=== PATIENT | female | born 1995 | race Caucasian/White ===

== ENCOUNTER 2017-06-25 19:13 | Emergency (ER) | payer OTHER ==
[~2017-06-25] VITALS: Ht 165.1 cm; Wt 53.8 kg
[~2017-06-25 19:13] MED LIST: ALBU8I INH; [UNRECOGNIZED DRUG - OTHER]
[2017-06-25 19:23] VITALS: BP 135/85; PULSE 82; RESP 18; TEMP 97.8; O2SAT 97
--- NOTE | 2017-06-25 20:17 | RADRPT ---
EXAM DATE/TIME: 06/25/2017 19:58 [place] COMPARISON: No previous studies available for comparison. INDICATIONS : Left elbow injury last night at concert. MEDICAL HISTORY : None. SURGICAL HISTORY : None. ENCOUNTER: Initial ACUITY: 1 day PAIN SCORE: 7/10 LOCATION: Left elbow FINDINGS: Multiple view examination of the left elbow demonstrates no soft tissue swelling, joint effusion, or fracture. The osseous structures are in normal alignment. Bony mineralization is normal. CONCLUSION: No acute disease. Tone Sanchez MD on June 25, 2017 at 20:15 Board Certified Radiologist. This report was verified electronically.
--- NOTE | 2017-06-25 20:22 | PD ---
HPI Chief Complaint: Musculoskeletal Complaint Time Seen by Provider: 19:35 Travel History International Travel<30 days: No Contact w/Intl Traveler<30days: No Traveled to known affect area: No History of Present Illness HPI This is a 22-year-old female here with left elbow pain 1 day. She injured the elbow on a metal pole. She now has pain with flexion and extension of the elbow. Pain is described as achy worse with movement and relieved with rest. Denies altered sensation in the extremity. Pain localized to the lateral epicondyle. Symptom severity is moderate. PFSH Past Medical History Medical History: Denies Significant Hx Asthma: No Autoimmune Disease: No Anxiety: No Depression: No Cardiovascular Problems: No Diminished Hearing: No Genitourinary: No Neurologic: No Psychiatric: No Immunizations Current: Yes Tetanus Vaccination: < 5 Years Influenza Vaccination: Yes ?: Not LMP: 06/11/17 Past Surgical History Surgical History: No Previous Surgery Other Surgery: No Social History Alcohol Use: Yes (occ) Tobacco Use: No Substance Use: No Allergies-Medications (Allergen,Severity, Reaction): Uncoded Allergies: bactrium (Allergy, Unknown, hallucinations, 06/25/17) Reported Meds & Prescriptions Reported Meds & Active Scripts Active Reported Ventolin Hfa (Albuterol Sulfate) 8 Gm Aero 1 Puff INH PRN * SHAKE WELL BEFORE USE * [Trisprentec] Review of Systems Except as stated in HPI: all other systems reviewed are Neg General / Constitutional: No: Fever Eyes: No: Visual changes HENT: No: Headaches Cardiovascular: No: Chest Pain or Discomfort Respiratory: No: Shortness of Breath Gastrointestinal: No: Abdominal Pain Genitourinary: No: Dysuria Physical Exam Narrative GENERAL: Alert and well-appearing 22-year-old female SKIN: Warm and dry. HEAD: Normocephalic. EYES: No injection or drainage. NECK: Supple CARDIOVASCULAR: Regular rate and rhythm RESPIRATORY: Breath sounds equal bilaterally. No accessory muscle use. GASTROINTESTINAL: Abdomen soft, non-tender, nondistended. MUSCULOSKELETAL: No cyanosis, or edema. Left upper extremity: +TTP, swelling, ecchymosis to the lateral epicondyle. No deformity. Pain with full extension of the elbow. Normal sensation. 2+ distal pulses. Normal coloration. Brisk cap refill. BACK: Nontender without obvious deformity. No CVA tenderness. Data Data Last Documented VS Vital Signs Date Time Temp Pulse Resp B/P (MAP) Pulse Ox O2 Delivery O2 Flow Rate FiO2 06/25/17 19:23 97.8 82 18 135/85 (102) 97 Orders Orders Elbow, Complete (4 Vws) (06/25/17 ) MDM Medical Decision Making Medical Screen Exam Complete: Yes Emergency Medical Condition: Yes Differential Diagnosis Elbow fracture, contusion, hematoma Narrative Course 22-year-old female with left elbow pain that she contused the area on a metal bar last night. Extremities neurovascularly intact. X-rays negative for fracture. She will be treated for contusion. Diagnosis Primary Impression: Contusion, elbow Qualified Codes: S50.02XA - Contusion of left elbow, initial encounter Referrals: Primary Care Physician Additional Instructions: Tylenol and ibuprofen as needed for pain. Ice and elevate the extremity. Follow-up the primary doctor. Disposition: 01 DISCHARGE HOME Condition: Stable Radha Zuñiga Jun 25, 2017 20:22
== END 2017-06-25 20:33 | disposition home or self-care (01) ==
LOC: PHEFT 19:13
DX: S50.02XA Contusion of left elbow, initial encounter (principal); X58.XXXA Exposure to other specified factors, initial encounter
CPT/HCPCS: 73080; 99283